=== PATIENT | female | born 1985 | race Caucasian/White ===

== ENCOUNTER 2018-07-04 12:07 | Day surgery (SDC) | payer BC ==
[~2018-07-04] VITALS: Ht 157.5 cm; Wt 74.6 kg
[2018-07-04] VITALS (18 sets, daily range): BP systolic 116–140; BP diastolic 74–98; PULSE 60–91; RESP 14–28; Ht 157.5 cm; Wt 74.6 kg
[~2018-07-04 12:07] MED LIST: CALC1TAB98 PO; FERR28TA PO; FOLI-49 PO; PREN-39
--- NOTE | 2018-07-04 13:24 | PREAC ---
Date/Time of Note Date/Time of Note DATE: 07/04/18 TIME: 13:18 Anesthesia Eval and Record Evaluation Time Pre-Procedure Interview DATE: 07/04/18 TIME: 13:18 Age 32 Sex female NPO: 8 hrs Preoperative diagnosis CHOLELITHIASIS Planned procedure LAPAROSCOPIC CHOLECYSTECTOMY POSS OPEN Past Medical History Past Medical History: Includes Cardio: Dyslipidemia GI: Obesity Surgery & Anesthesia Issues No known issue Meds Anticoagulation: No Beta Moises within 24 hr: No Reason Beta Moises not given: Pt. not on B-Moises Discontinued Reported Medications [none] No Conflict Check 11/18/13 Calcium Carbonate-Vitamin D3 (Calcium + D 600 Tablet) 1 Tab Tablet, 1 TAB PO DAILY 07/30/13 Ferrous Sulfate (Ferrous Sulfate) 1 Tab Tablet, 1 TAB PO DAILY 07/30/13 Folic Acid* (Folic Acid*) 1 Mg Tablet, 1 MG PO DAILY 07/30/13 Vits W-Ca,Fe,Fa(<1MG) ( Vitamins) 1 Tab Tablet 08/24/09 Meds reviewed: Yes Allergies Coded Allergies: No Known Allergy (Verified , 07/04/18) Allergies Reviewed: Yes Labs/Studies Labs Reviewed: Reviewed by anesthesiologist Result Diagram: 07/04/18 1240 Laboratory Tests 07/04/18 12:40 test: Negative Pre-procedure Exam Last vitals Vital Signs Date Temp Pulse Resp B/P (MAP) Pulse Ox O2 O2 Flow FiO2 Time Delivery Rate 07/04/18 98.6 90 18 123/82 100 Room Air 13:11 (96) Airway: Adequate mouth opening Mallampati: Mallampati II Teeth: Normal Lung: Normal Heart: Normal ASA Physical Status ASA physical status: 2 Emergency: None Planned Anesthetic General/MAC: ETT Pre-operative Attestations Prior to commencing anesthesia and surgery, the patient was re-evaluated, there was verification of: *The patient's identity *The results of appropriate recent lab work and preoperative vital signs *The above evaluation not changing prior to induction *Anesthetic plan, risk benefits, alternative and complications discussed with patient/family; questions answered; patient/family understands, accepts and wishes to proceed. MONTY DIAZ Jul 04, 2018 13:24
[2018-07-04] MEDS ORDERED: CEFAZOLIN 1 GM INJ ONE (14:07)
[2018-07-04] MEDS ORDERED: DEXAMETHASONE 4 MG/ML 5 ML INJ ONE (14:07)
[2018-07-04] MEDS ORDERED: MIDAZOLAM 1 MG/ML 2 ML INJ ONE (14:07)
[2018-07-04] MEDS ORDERED: PROPOFOL 20 ML ONE (14:07)
[2018-07-04] MEDS ORDERED: NEOSTIGMINE 3 MG/3 ML SYRINGE ONE (14:07)
[2018-07-04] MEDS ORDERED: ONDANSETRON 4 MG INJ ONE (14:07)
[2018-07-04] MEDS ORDERED: GLYCOPYRROLATE 0.4 MG INJ ONE (14:07)
[2018-07-04] MEDS ORDERED: FENTAnyl 50 MCG/ML VIAL ONE ×2 (14:07→16:08)
[2018-07-04] MEDS ORDERED: ROCURONIUM 50 MG INJ ONE (14:07)
[2018-07-04] MEDS ORDERED: ROPIVACAINE 0.5 % 30 ML VIAL ONE (14:08)
--- NOTE | 2018-07-04 15:34 | OPR ---
Date/Time of Note Date/Time of Note DATE: 07/04/18 TIME: 15:31 Operative Report Procedure Date: Jul 04, 2018 Preoperative Diagnosis symptomatic gallstones Postoperative Diagnosis same Operation/Procedure Performed laparoscopic cholecystectomy Surgeon see signature line Crop Consultant Francis Johnson Anesthesia Type: general Estimated Blood Loss: 0 - 10 ml's Transfusion none Specimen gallbladder Grafts/Implants none Complications none Pt Condition Post Procedure: stable Indications This is a 32-year-old female with some tender gallstones. She required surgical excision of her gallbladder. Risks alternatives benefits and percent were discussed the patient. Patient expressed understanding consents to the operation. Procedure Description Patient is taken to the OR and prepped and draped in usual sterile fashion. Surgical time was performed. IV antibiotics were given. Infraumbilical transverse incision was made with a 15 blade. Dissection with cautery was carried onto the fascia. The fascia was grasped with Powderly's and divided with curved Toth scissors. 0 Vicryl U stitch was placed into the fascia. Hilliard trocar was introduced. Pneumoperitoneum is established. Midepigastric 12 mm optical trochars placed under direct visualization. Right upper quadrant upper flank 5 mm optical trochars were placed under direct visualization. Upon initial inspection the gallbladder is grasped with the fundus and retracted in a lateral and cephalad direction. [place] graspers were used to dissect out the cystic duct and cystic artery. The critical view was established. The cystic duct is divided with the clips proximally clipped distal and the division was p erformed laparoscopic scissors. The cystic artery was divided with the clips proximally clipped distal and the division was performed laparoscopic scissors. The gallbladder was taken of the gallbladder bed. Good hemostasis established in the gallbladder bed. The gallbladder is retrieved using Endo Catch bag. Ports removed under direct position. 0 Vicryl stitch was tied down. Skin is closed using skin joey. A tap block was provided by the anesthesiologist. Dry dressings were applied. Daniel WALLS Jul 04, 2018 15:34
--- NOTE | 2018-07-04 15:52 | PAC ---
Date/Time of Note Date/Time of Note DATE: 07/04/18 TIME: 15:52 Post-Anesthesia Notes Post-Anesthesia Note Last documented vital signs Vital Signs Date Temp Pulse Resp B/P (MAP) Pulse Ox O2 O2 Flow FiO2 Time Delivery Rate 07/04/18 98.1 15:43 07/04/18 90 18 123/82 100 Room Air 13:11 (96) Activity: WNL Respiratory function: WNL Cardiovascular function: WNL Mental status: Baseline Pain reasonably controlled: Yes Hydration appropriate: Yes Nausea/Vomiting absent: Yes Lito Thomas M.D. Jul 04, 2018 15:52
[2018-07-04] MEDS ORDERED: HYDROCODONE/APAP (5/325) TAB PO ONE (16:00)
[2018-07-04] MEDS ORDERED: DIPHENHYDRAMINE 50 MG INJ IV PRN (16:30)
[2018-07-04] MEDS ORDERED: IPRATROPIUM (NEB) 0.5 MG/2.5 ML AMP HHN PRN (16:30)
[2018-07-04] MEDS ORDERED: hydrALAzine 20 MG INJ IV PRN (16:30)
[2018-07-04] MEDS ORDERED: OXYCODONE/ACETAMINOPHEN (5/325) TAB PO PRN ×2 (16:30)
[2018-07-04] MEDS ORDERED: EPHEDrine SULFATE 50 MG/5 ML SYG IV PRN (16:30)
[2018-07-04] MEDS ORDERED: MIDAZOLAM 1 MG/ML 2 ML INJ IV PRN (16:30)
[2018-07-04] MEDS ORDERED: TRIMETHOBENZAMIDE 100 MG/ML VIAL IM PRN (16:30)
[2018-07-04] MEDS ORDERED: HYDROmorphONE 1 MG/5 ML IV SYRINGE IV PRN ×3 (16:30)
[2018-07-04] MEDS ORDERED: FENTAnyl 50 MCG/ML VIAL IV PRN ×3 (16:30)
[2018-07-04] MEDS ORDERED: ONDANSETRON 4 MG INJ IV PRN (16:30)
[2018-07-04] MEDS ORDERED: LABETALOL HCL 20MG INJ IV PRN (16:30)
[2018-07-04] MEDS ORDERED: ALBUTEROL 0.083% (NEB) 2.5 MG/3 ML AMP HHN PRN (16:30)
[2018-07-04] MEDS ORDERED: MEPERIDINE 25 MG INJ IV PRN (16:30)
== END 2018-07-04 17:51 | disposition home or self-care (01) ==
LOC: SDS 12:07
PROVIDERS: ATTEND Surgery
DX: K80.20 Calculus of gallbladder without cholecystitis without obstruction (principal)
CPT/HCPCS: 47562; 80053; 84703; 85025; 85610; 85730; 88304; J0690; J1100; J2250; J2405; J2710; J2795; J3010; Z7512; Z7610